=== PATIENT | male | born 1955 | race Caucasian/White ===

== ENCOUNTER 2020-03-28 05:36 | Outpatient (CLI) | payer BC, OTHER ==
[2020-03-28 16:32] LABS: #Eosinphils 0.2 thou/uL (0.0-0.7); #Lymphocytes 2.2 thou/uL (1.20-3.40); #Monocytes 0.7 thou/uL (0.11-0.59); #Neutrophils 5.4 thou/uL (1.40-6.50); %Basophils 0.4 % (0.0-1.0); %Eosinophils 2.3 % (0.0-10.0); %Lymphocytes 25.6 % (21.0-51.0); %Monocytes 7.8 % (0.0-10.0); Hemoglobin 16.5 g/dL (14.0-18.0); Mean Corpuscular HGB CONC 34.7 g/dL (32.0-36.0); Mean Corpuscular Hemoglobin 33.4 pg (27.0-31.0); Mean Corpuscular Volume 96.1 fL (78.0-98.0); Mean Platelet Volume 9.6 fL (7.4-10.4); Platelet Count 209 thou/uL (130-400); RBC Distribution Width 12.2 % (11.5-14.5); Red Blood Cell (RBC) Count 4.93 mill/uL (4.70-6.10); White Blood Cell (WBC) Count 8.4 thou/uL (4.8-10.8)
[2020-03-28 16:47] LABS: Bilirubin Negative (Negative); Blood, Urine Negative (Negative); Clarity Clear (Clear); Glucose, Urine (Dipstick) Normal (Negative); Ketone, Urine Negative (Negative); Leukocyte Negative Leu/uL (Negative); Nitrite Negative (Negative); Protein, Urine (Dipstick) Negative (Neg-Trace); Specific Gravity, Urine 1.018 (1.002-1.036); Urobilinogen Normal mg/dL (Less than 2); pH, Urine 5.5 (5.0-9.0)
[2020-03-28 17:12] LABS: Anion Gap 16 mmol/L (10-20); BUN (Urea Nitrogen) 14 mg/dL (8.4-25.7); Calc. Creatinine Clearance 0 mL/min (70-130); Calcium 8.8 mg/dL (7.8-10.44); Carbon Dioxide 22 mmol/L (23-31); Chloride 102 mmol/L (98-107); Estimated GFR-MDRD Greater than 90; Glucose 102 mg/dL (80-115); Potassium 4.4 mmol/L (3.5-5.1); Sodium 136 mmol/L (136-145)
[2020-03-30 13:44] LABS: SARS-CoV-2 MS2 Positive; SARS-CoV-2 N Gene Positive; SARS-CoV-2 S Gene Negative; SARS-CoV-2 by NAA Indeterminate (NotDetected); SARS-CoV-2 orf1ab Negative
== END 2020-03-28 05:37 | disposition home or self-care (01) ==
LOC: LABBT 05:36
PROVIDERS: ATTEND Orthopaedic Surgery Hand Surgery
DX: Z01.812 Encounter for preprocedural laboratory examination (principal); Z11.59 Encounter for screening for other viral diseases; S62.611A Displaced fracture of proximal phalanx of left index finger, initial encounter for closed fracture
CPT/HCPCS: 80048; 81003; 85025; 87635; U0003

== ENCOUNTER → 2020-04-01 | Day surgery (SDC) | payer BC, OTHER ==
[2020-03-27 15:02] VITALS: BMI 32.1
[~2020-04-01] MED LIST: Bacitracin Zinc Ointment 30 gm TUBE ONE; Betamet Acet/Betamet Na Ph 30 MG/5 ML VIAL ONE; Bupivacaine PF 0.5% 30 ML VIAL ONE; EPINEPHrine 1 MG/ML AMP ONE; Fentanyl 100 MCG/2 ML VIAL ONE; Midazolam HCl 2 mg/2 ml Vial ONE; Sodium Chloride 0.9% 10 ML ONE
[2020-04-01 08:21] LABS: SARS-CoV-2 NAA Rapid Test DETECTED (NotDetected)
== END ==
LOC: SDC 05:57
PROVIDERS: ATTEND Orthopaedic Surgery Hand Surgery
DX: S52.611A Displaced fracture of right ulna styloid process, initial encounter for closed fracture (principal); U07.1 COVID-19; Z53.8 Procedure and treatment not carried out for other reasons
CPT/HCPCS: J0171; J0690; J0702; J2250; J3010; J3490; S0020; U0002

== ENCOUNTER 2020-05-20 05:46 | Day surgery (SDC) | payer BC ==
[2020-05-16 11:30] VITALS: BMI 32.1
[2020-05-20 07:07] LABS: #Basophils 0.1 thou/uL (0.0-0.2); #Eosinphils 0.3 thou/uL (0.0-0.7); #Lymphocytes 1.5 thou/uL (1.20-3.40); #Monocytes 0.6 thou/uL (0.11-0.59); #Neutrophils 2.8 thou/uL (1.40-6.50); %Basophils 1.4 % (0.0-1.0); %Eosinophils 5.4 % (0.0-10.0); %Lymphocytes 28.7 % (21.0-51.0); %Monocytes 12.1 % (0.0-10.0); %Neutrophils 52.4 % (42.0-75.0); Hemoglobin 17.2 g/dL (14.0-18.0); Mean Corpuscular HGB CONC 34.3 g/dL (32.0-36.0); Mean Corpuscular Hemoglobin 32.2 pg (27.0-31.0); Mean Corpuscular Volume 93.7 fL (78.0-98.0); Mean Platelet Volume 8.3 fL (7.4-10.4); Platelet Count 168 thou/uL (130-400); RBC Distribution Width 11.7 % (11.5-14.5); Red Blood Cell (RBC) Count 5.36 mill/uL (4.70-6.10); White Blood Cell (WBC) Count 5.3 thou/uL (4.8-10.8)
[2020-05-20] MEDS ORDERED: Midazolam HCl 2 mg/2 ml Vial ONE (07:57)
[2020-05-20] MEDS ORDERED: Fentanyl 100 MCG/2 ML VIAL ONE ×2 (07:57→08:35)
[2020-05-20] MEDS ORDERED: Bacitracin Zinc Ointment 30 gm TUBE ONE (08:37)
[2020-05-20] MEDS ORDERED: Bupivacaine PF 0.5% 30 ML VIAL ONE (08:37)
[2020-05-20] MEDS ORDERED: Betamet Acet/Betamet Na Ph 30 MG/5 ML VIAL ONE (08:37)
[2020-05-20] MEDS ORDERED: Sodium Chloride 0.9% 10 ML ONE (08:37)
[2020-05-20] MEDS ORDERED: EPINEPHrine 1 MG/ML AMP ONE (08:40)
--- NOTE | 2020-05-20 11:40 | RAD ---
4 fluoroscopic spot images of the right wrist: 05/20/2020 11:34 AM CLINICAL INDICATION: Ulnar shortening; osteotomy COMPARISON: None. FINDINGS: On the initial images, there is an ununited ulnar styloid process fracture. Subsequent images demonst rate its removal. Carpal alignment appears within normal limits. Total fluoroscopic time was 22 seconds. IMPRESSION: Ulnar styloid process nonunion resection.
[2020-05-20] MEDS ORDERED: Ketorolac Tromethamine 30 MG/ML VIAL ONE (12:29)
[2020-05-20] MEDS ORDERED: HYDROcodone/Acetaminophen 5/325 mg Tablet ONE (12:38)
[2020-05-20] MEDS ORDERED: Ondansetron PF 4 MG/2 ML Vial ONE (14:04)
[2020-05-20] MEDS ORDERED: Bupivacaine HCl 0.5%/Epinephrine 1:200,000/PF 30 ml Vial ONE (14:04)
[2020-05-20] MEDS ORDERED: Lidocaine 1% PF 5 ML VIAL ONE (14:04)
[2020-05-20] MEDS ORDERED: Dexamethasone 20 MG/5 ML VIAL ONE (14:04)
[2020-05-20] MEDS ORDERED: PROPOFOL 200 MG/20 ML VIAL ONE (14:04)
--- NOTE | 2020-05-20 17:26 | OP ---
DATE OF PROCEDURE: 05/20/2020 PREOPERATIVE DIAGNOSES: 1. Nonunion with pain, right ulnar styloid. 2. Triangular fibrocartilage, possible tear. 3. Cystic changes of triquetrum cyst with fracture. 4. Ulnocarpal impingement findings intraoperatively. POSTOPERATIVE DIAGNOSES: 1. Triquetrum with small amount of reactive bone in the area of radiographic changes, but no true cystical changes. 2. 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 3. Thickening of the joint line with marked synovitis and some small crystal-like structures, possibly consistent with low-grade gout. PROCEDURES PERFORMED: 1. Open biopsy, bone of triquetrum. 2. Open treatment of nonunion of ulnar styloid with excision and open treatment of nonunion of ulnar styloid with capsule repair. 3. Arthroscopic wrist synovectomy. 4. C-arm supervision. SPECIMENS SENT: 1. Ulnar styloid nonunion fragment. 2. Bone, triquetrum. ESTIMATED BLOOD LOSS: 10 mL. TOURNIQUET TIME: 62 minutes. DESCRIPTION OF PROCEDURE: After successful general endotracheal anesthesia, the limb was prepped and draped. After this, the patient had time-out done appropriately. We placed the arm in appropriate in-line traction for wrist arthroscopy in a sterile technique and established the 6U, 6R, and a 3, 4 portal dorsally. Here, we inspected the entire wrist to include the radioscaphoid, scapholunate articulation, the radial capitate and radiolunate, the lunate triquetrum joint and the entire ulnocarpal area. We found no abnormality in the radial aspect, but once we became as far ulnar as the lunate central area, we noticed marked synovitis. We established a 3, 4 portal at first and then used the 6U and 6R alternating between working visualization and outflow. Here, we saw a marked thickening of the anterior joint area with synovitis just anterior to the TFCC and once this was done, we probed the TFCC and found no tear. In the distal superior and in the recess pouch near the area of the ulnar styloid between the 6U and 6R portals. We were able to do a synovectomy here. It was clear, however, that there was some gross motion at the ulnar styloid, so we felt that may be symptomatic, and therefore, we removed the arthroscope, exsanguinated the limb, and inflated the tourniquet to 250 mmHg pressure. Here, we extended the arthroscopic portal 5 mm proximal and 15 mm distal. We then saw the superficial ulnar nerve protected and dissected free from the field, and then entered the retinaculum, elevated the ECU subsheath, and then cut down to the ulnar styloid. Here, once we opened this capsule, we saw a marked laxity and gross motion at this fragment. It was almost denuded except for direct ulnar and superior and inferior capsular attachment, which we had removed. Now, we had the styloid completely out, performed a rotational test. It was stable. We on x-ray there was no widened DRUJ and no distal ulnar subluxation relative to the distal radius, so we decided to only close the capsular area as the TFCC was intact proximal to this. This was done with a 0 Vicryl in an interrupted [id number] pattern. We then extended the incision 5 mm distal, and on C-arm guidance, found the area where the bone was changed on radiographs, saw some reactive bone that was slightly red and more erythematous than the other and biopsied from here. This was also being sent as a specimen. The nonunion piece and specimen of triquetrum debridement, where we used a combination of a curette, 18-gauge needle, and fluid was sent as specimen. We now retested the ulna and found that with the repairs, there was no impingement, the ulna was neutral or 0.5 mm ulnar minus and in the sagittal plane, there was no intercalated instability segment. For this reason, we decided to repair the subsheath with interrupted 0 Vicryl, used 2-0 Vicryl to repair the retinaculum, release the tourniquet, obtain hemostasis, and then remove traction. Once this was done, C-arm was no longer needed and the specimens were sent to the lab for processing. TOURNIQUET TIME: 60 minutes. ESTIMATED BLOOD LOSS: 10 mL. Job ID: [id number]
== END 2020-05-20 13:45 | disposition home or self-care (01) ==
LOC: SDC 05:46
PROVIDERS: ATTEND Orthopaedic Surgery Hand Surgery
PROC: 0RBN4ZZ Excision of Right Wrist Joint, Percutaneous Endoscopic Approach (ICD-10-PCS; principal; 2020-05-20)
PROC: 3E0T3BZ Introduction of Anesthetic Agent into Peripheral Nerves and Plexi, Percutaneous Approach (ICD-10-PCS; principal; 2020-05-20)
PROC: 0RQN0ZZ Repair Right Wrist Joint, Open Approach (ICD-10-PCS; principal; 2020-05-20)
DX: S63.591A Other specified sprain of right wrist, initial encounter (principal); S52.611A Displaced fracture of right ulna styloid process, initial encounter for closed fracture; M65.88 Other synovitis and tenosynovitis, other site; M25.831 Other specified joint disorders, right wrist; M77.8 Other enthesopathies, not elsewhere classified; G89.18 Other acute postprocedural pain; K21.9 Gastro-esophageal reflux disease without esophagitis; I48.91 Unspecified atrial fibrillation; I10 Essential (primary) hypertension; Z79.899 Other long term (current) drug therapy; W22.8XXA Striking against or struck by other objects, initial encounter; Y93.89 Activity, other specified
CPT/HCPCS: 36415; 76000; 85025; 88305; 88307; 88311; J0171; J0670; J0702; J1100; J1885; J2250; J2405; J2704; J3010; J3490; S0020